=== PATIENT | female | born 1975 | race Caucasian/White ===

== ENCOUNTER 2016-12-03 11:07 | Emergency (ER) | payer BC, OTHER ==
[~2016-12-03] VITALS: Ht 157.5 cm; Wt 55.0 kg
[~2016-12-03 11:07] MED LIST: ACET300T2 PO; ALBU1AER9 INH; CLC/300 PO; DICY10CA12 PO; EFFSR75 PO; HYOS1TAB PO; LORA-741 PO; OMEP40CA41 PO
[2016-12-03 11:16] VITALS: Ht 157.5 cm; Wt 55.0 kg
[2016-12-03 11:55] LABS: BASO % 0.3 %; BASO ABS # 0.05 K/uL (0-0.2); COMPLETE YES; EOS % 1.3 %; HEMATOCRIT 46.7 % (37-47); IG% 0.3 %; LYMPH % 17.2 %; LYMPH ABS # 2.99 K/uL (1.2-3.4); MEAN CELL VOLUME 95.5 fL (80-100); MEAN CORPUSCULAR HEMOGLOBIN 33.9 pg (25-34); MEAN CORPUSCULAR HGB CONC 35.5 g/dl (32-36); MEAN PLATELET VOLUME 10.1 fL (7.4-10.4); MONO % 4.4 %; NEUT % 76.5 %; PLATELET COUNT 403 K/uL (130-400); RED BLOOD COUNT 4.89 M/uL (4.2-5.4); WHITE BLOOD COUNT 17.39 K/uL (4.8-10.8)
[2016-12-03 12:03] LABS: BUN/CREATININE RATIO 9.9 (10-20); CREATININE 0.98 mg/dl (0.60-1.20); POTASSIUM 3.6 mmol/L (3.5-5.1)
[2016-12-03 12:06] LABS: ALB/GLOB RATIO 1.1 (0.9-2)
[2016-12-03] MEDS ORDERED: ONDANSETRON INJ 2 MG/ML 2 ML VIAL IV STA (12:06)
[2016-12-03] MEDS ORDERED: SODIUM CHLORIDE 0.9% 1000ML 1,000 ML IV STA (12:06)
[2016-12-03] MEDS ORDERED: BSP/10 PO (12:28)
[2016-12-03] MEDS ORDERED: ATR25 PO (12:28)
[2016-12-03] MEDS ORDERED: VNTHFA/IN INH (12:29)
[2016-12-03] MEDS ORDERED: HYDROmorphone INJ 1 MG/ML SYR IV STA (12:38)
--- NOTE | 2016-12-03 13:13 | DIAGNOSTIC IMAGING REPORT ---
ABDOMEN AND PELVIS CT WITHOUT CONTRAST CT DOSE: 273.44 mGy.cm HISTORY: upper abd pain eval for colitis TECHNIQUE: Multiaxial CT images of the abdomen and pelvis were performed without contrast. COMPARISON STUDY: KUB 11/07/2015. Abdomen and pelvis CT 05/15/2009. FINDINGS: The lung bases are clear. Tiny hiatus hernia. Cholecystectomy. The unenhanced liver, spleen, adrenal glands, kidneys, and pancreas are unremarkable. No peripancreatic inflammatory change. No retroperitoneal lymphadenopathy. An intrauterine device appears to be in good position. No pelvic free fluid. Suboptimal evaluation for bowel pathology due to the lack of intravenous and oral contrast. However, no definite evidence for bowel obstruction. The appendix appears surgically absent. There may be minimal inflammatory change surrounding the mid small bowel loops. No colonic wall thickening identified. IMPRESSION: There may be minimal inflammatory change surrounding the mid small bowel loops. This could represent a low-grade enteritis. No evidence for bowel obstruction. No colonic wall thickening. Electronically signed by: Kenny Cheng M.D. 12/03/2016 1:11 PM Dictated Date/Time: 12/03/2016 1:04 PM
[2016-12-03] MEDS ORDERED: ALUMINUM/MAGNESIUM SUSP 30 ML UDC PO STA (13:42)
[2016-12-03] MEDS ORDERED: LIDOCAINE HCL 2% VISC SOLN 20 ML UDC PO STA (13:42)
[2016-12-03] MEDS ORDERED: FAMOTIDINE 20MG/102 ML D5W IV STA (14:15)
[2016-12-03 15:33] VITALS: BP 121/81; PULSE 93; O2SAT 99
--- NOTE | 2016-12-03 17:11 | EMERGENCY ROOM VISIT NOTE ---
History Report prepared by Taylor: Francia Lemos Under the Supervision of: Dr. Ibrahima Huffman M.D. First contact with patient: 12:04 Chief Complaint: ABDOMINAL PAIN Stated Complaint: VOMITING,DIARRHEA,ABD PAIN Nursing Triage Summary: triage note: pt reports generalized abd pain, nausea, vomitting since this am. pt reports "i feel like i am going to pass out, help me please." unable to obtain oral temp in triage. pt moving around in wheelchair in triage and states "i can't have morphine i can only have dilaudid." History of Present Illness The patient is a 41 year old female who presents to the Emergency Room with complaints of persistent severe abdominal cramping starting this morning. The pain is located in her upper mid abdomen. She has had this pain intermittently for the past 5 years. She follows with gastroenterology who told her to go on a bland diet. She has not had an endoscopy lately. Her last colonoscopy was several years ago. She reports a "zapping" sensation in her skin, chills, diaphoresis, vomiting, and diarrhea. She has diarrhea couple times a week regularly. It has not gotten worse recently. She denies any blood in her diarrhea, fever, or urinary symptoms. She denies any travel outside the country or recent antibiotics. She denies any chance of as she has an IUD in place. She has had a cholecystectomy and appendectomy. She states the pain is similar to her prior episodes of pain and only Dilaudid helps her. Source of History: patient Onset: this morning Position: abdomen (mid upper) Symptom Intensity: severe Quality: cramping Timing: other (persistent) Associated Symptoms: + chills, + diaphoresis, + diarrhea, + vomiting, No fevers, No hematochezia, No urinary symptoms Note: Pt reports zapping sensation in her skin. Review of Systems See HPI for pertinent positives & negatives. A total of 10 systems reviewed and were otherwise negative. Past Medical & Surgical Medical Problems: (1) Asthma (2) Hiatal hernia Surgical Problems: (1) History of appendectomy (2) History of cholecystectomy Family History Cancer Diabetes mellitus Heart disease Hypertension Social History Smoking Status: Current Every Day Smoker Alcohol Use: occasionally Marital Status: Occupation Status: unemployed Current/Historical Medications Scheduled Albuterol Hfa (Ventolin Hfa), 2-4 PUFFS INH Q6H Buspirone HCl (Buspirone HCl), 10 MG PO QID Dicyclomine Hcl (Dicyclomine Hcl), 10 MG PO QID Hydroxyzine HCl (Hydroxyzine HCl), 25 MG PO BID Hyoscyamine Sulfate (Levsin), 0.125 MG PO TID Omeprazole (Prilosec), 40 MG PO DAILY Venlafaxine Hcl (Effexor Extended Rel), 75 MG PO TID Allergies Coded Allergies: Amoxicillin (Verified Allergy, Severe, HIVES, 11/07/15) Cephalexin (Unverified Allergy, Severe, FULL BODY FATIGUE, 11/07/15) Iodinated Diagnostic Agents (Unverified Allergy, Severe, FEELING BURNING INSIDE AND OUT, 11/07/15) Iodine (Unverified Allergy, Severe, FEELING BURNING INSIDE AND OUT, ) FROM CT DYE Clarithromycin (Verified Allergy, Mild, 11/07/15) Penicillins (Verified Allergy, Mild, HIVES, 11/07/15) Erythromycin (Verified Allergy, Unknown, abd pain, 11/07/15) Macrolides (Verified Adverse Reaction, Mild, ERYTHROMYCIN=NASUEA, STOMACH ACHE, 11/07/15) Physical Exam Vital Signs Date Time Temp Pulse Resp B/P Pulse Ox O2 Delivery O2 Flow Rate FiO2 12/03/16 15:33 93 18 121/81 99 12/03/16 14:32 76 20 124/77 98 Room Air 12/03/16 13:10 80 26 139/92 98 Room Air 12/03/16 11:32 80 12/03/16 11:16 84 24 138/96 100 Room Air Physical Exam Constitutional: Vital signs reviewed. Eyes: Pupils are equal round reactive to light. Conjunctiva are noninjected. ENT: Pharynx is clear without erythema or exudate. Mucous membranes are moist. Neck supple without meningeal signs. Respiratory: Clear to auscultation bilaterally. Breath sounds are equal bilaterally. Cardiovascular: Regular rate and rhythm. No rubs or gallops. GI: Soft, nondistended. Epigastric tenderness. No involuntary guarding. Bowel sounds are present. Musculoskeletal: No peripheral edema. Integumentary: No cyanosis. Neurological: The patient is awake and alert. No focal deficits. Psychiatric: Very anxious. Medical Decision & Procedures ER Provider Diagnostic Interpretation: Radiology results as stated below per my review and the radiologist's interpretation: ABDOMEN AND PELVIS CT WITHOUT CONTRAST CT DOSE: 273.44 mGy.cm HISTORY: upper abd pain eval for colitis TECHNIQUE: Multiaxial CT images of the abdomen and pelvis were performed without contrast. COMPARISON STUDY: KUB 11/07/2015. Abdomen and pelvis CT 05/15/2009. FINDINGS: The lung bases are clear. Tiny hiatus hernia. Cholecystectomy. The unenhanced liver, spleen, adrenal glands, kidneys, and pancreas are unremarkable. No peripancreatic inflammatory change. No retroperitoneal lymphadenopathy. An intrauterine device appears to be in good position. No pelvic free fluid. Suboptimal evaluation for bowel pathology due to the lack of intravenous and oral contrast. However, no definite evidence for bowel obstruction. The appendix appears surgically absent. There may be minimal inflammatory change surrounding the mid small bowel loops. No colonic wall thickening identified. IMPRESSION: There may be minimal inflammatory change surrounding the mid small bowel loops. This could represent a low-grade enteritis. No evidence for bowel obstruction. No colonic wall thickening. Electronically signed by: Kenny Cheng M.D. 12/03/2016 1:11 PM Dictated Date/Time: 12/03/2016 1:04 PM Laboratory Results 12/03/16 11:31 Red Blood Count 4.89, Mean Corpuscular Volume 95.5, Mean Corpuscular Hemoglobin 33.9, Mean Corpuscular Hemoglobin Concent 35.5, Mean Platelet Volume 10.1, Neutrophils (%) (Auto) 76.5, Lymphocytes (%) (Auto) 17.2, Monocytes (%) (Auto) 4.4, Eosinophils (%) (Auto) 1.3, Basophils (%) (Auto) 0.3, Neutrophils # (Auto) 13.32, Lymphocytes # (Auto) 2.99, Monocytes # (Auto) 0.76, Eosinophils # (Auto) 0.22, Basophils # (Auto) 0.05 12/03/16 11:31 Test 12/03/16 11:31 White Blood Count 17.39 K/uL (4.8-10.8) Red Blood Count 4.89 M/uL (4.2-5.4) Hemoglobin 16.6 g/dL (12.0-16.0) Hematocrit 46.7 % (37-47) Mean Corpuscular Volume 95.5 fL (80-100) Mean Corpuscular Hemoglobin 33.9 pg (25-34) Mean Corpuscular Hemoglobin Concent 35.5 g/dl (32-36) Platelet Count 403 K/uL (130-400) Mean Platelet Volume 10.1 fL (7.4-10.4) Neutrophils (%) (Auto) 76.5 % Lymphocytes (%) (Auto) 17.2 % Monocytes (%) (Auto) 4.4 % Eosinophils (%) (Auto) 1.3 % Basophils (%) (Auto) 0.3 % Neutrophils # (Auto) 13.32 K/uL (1.4-6.5) Lymphocytes # (Auto) 2.99 K/uL (1.2-3.4) Monocytes # (Auto) 0.76 K/uL (0.11-0.59) Eosinophils # (Auto) 0.22 K/uL (0-0.5) Basophils # (Auto) 0.05 K/uL (0-0.2) RDW Standard Deviation 45.4 fL (36.4-46.3) RDW Coefficient of Variation 13.0 % (11.5-14.5) Immature Granulocyte % (Auto) 0.3 % Immature Granulocyte # (Auto) 0.05 K/uL (0.00-0.02) Anion Gap 10.0 mmol/L (3-11) Est Creatinine Clear Calc Drug Dose 61.0 ml/min Estimated GFR () 84.2 Estimated GFR (Non- 72.7 BUN/Creatinine Ratio 9.9 (10-20) Calcium Level 10.0 mg/dl (8.5-10.1) Total Bilirubin 0.3 mg/dl (0.2-1) Aspartate Amino Transf (AST/SGOT) 18 U/L (15-37) Alanine Aminotransferase (ALT/SGPT) 33 U/L (12-78) Alkaline Phosphatase 110 U/L (45-117) Total Protein 8.2 gm/dl (6.4-8.2) Albumin 4.3 gm/dl (3.4-5.0) Globulin 3.9 gm/dl (2.5-4.0) Albumin/Globulin Ratio 1.1 (0.9-2) Lipase 237 U/L (73-393) Laboratory results as reviewed by me. Medications Administered Medications (Trade) Dose Ordered Sig/Hiram Route Start Time Stop Time Status Last Admin Dose Admin Sodium Chloride (Nss 1000ml) 1,000 ml @ 999 mls/hr Q1H1M STAT IV 12/03/16 12:06 12/03/16 13:06 DC 12/03/16 12:23 999 MLS/HR Ondansetron HCl (Zofran Inj) 4 mg NOW STAT IV 12/03/16 12:06 12/03/16 12:07 DC 12/03/16 12:23 4 MG Hydromorphone HCl (Dilaudid Inj) 1 mg NOW STAT IV 12/03/16 12:38 12/03/16 12:41 DC 12/03/16 12:44 1 MG Lidocaine HCl (Viscous Lidocaine 2% Soln) 10 ml NOW STAT PO 12/03/16 13:42 12/03/16 13:43 DC 12/03/16 13:49 10 ML Al Hydroxide/Mg Hydroxide (Maalox Susp) 30 ml NOW STAT PO 12/03/16 13:42 12/03/16 13:43 DC 12/03/16 13:49 30 ML Famotidine (Pepcid 20mg/100 ml) 20 mg ONE STAT IV 12/03/16 14:15 12/03/16 14:17 DC 12/03/16 14:29 20 MG ED Course 1206: Zofran Inj 4 mg IV, NSS 1000 ml @ 999 mls/hr IV. 1218: I attempted to evaluate the patient at this time, but I was not able to because she was in the shower. 1227: The patient was evaluated in room C5. A complete history and physical exam was performed. 1238: Dilaudid Inj 1 mg IV. 1335: I reevaluated the patient. She was quiet until I walked into the room at which time she began to moan and cry saying that the pain is coming back. I reviewed the test results with her and her . When I left, I listened outside the door and she was quiet again. 1342: Maalox Susp 30 ml PO, Lidocaine HCl 10 ml PO. 1415: Famotidine 20 mg IV. 1500: I reevaluated the patient. She is resting comfortably. I discussed tonight 's findings with her. I recommended outpatient follow up with GI doctor. She verbalized agreement of the treatment plan. She was discharged home. Medical Decision This is a 41-year-old female presents with abdominal pain, vomiting and diarrhea. Differential diagnosis includes gastroenteritis, colitis, dehydration , electrolyte abnormality, IBS, bowel perforation. I did perform a limited focused review of portions of the patient's old chart on the electronic medical record. The patient was seen in 2013 for abdominal pain, vomiting, and diarrhea and noted to the doctor that she had similar symptoms ongoing for years and is followed by gastroenterology. She was treated with morphine and Dilaudid and discharged home. On the [facility] system I found that she had a colonoscopy in 2013 which was unremarkable. EGD in 2014 showed Yañez's esophagus. She was seen by gastroenterology in 2016 and diagnoses with uncontrolled GERD, IBS, and bile acid diarrhea with possible psychiatric components to her symptoms. I did evaluate the patient as noted above. The patient is presenting very dramatically. Initially I attempted to see the patient but the nurses told me that she wanted to take a shower first. I did eventually see the patient and she was moaning throughout the examination repeatedly asking for pain medicine. IV access was established. I did treat her with IV Dilaudid and Zofran per her request. She was also given normal saline IV. I did order and review the patient's blood work as noted in the electronic medical record. Her white blood cell count was elevated. I did reassess the patient. She felt better but stated the pain was coming back. After further discussion, I did order a CT of the abdomen and pelvis. I did review the images myself as well as the radiology report as described above. This demonstrated signs of enteritis but no other acute abnormality. I did treat patient with IV Pepcid as well as a GI cocktail and she was noted to have severe GERD and Yañez's esophagus by her doctor. I did reassess the patient. She is sleeping comfortably and I did talk to her stated that she felt well enough for discharge. He was advised to have her follow closely with her doctor and public address technician for further evaluation. They were given return instructions. The patient was discharged in good condition. [place] Drug Monitoring Program Search Results: patient reviewed within database Drug Monitoring Findings: No matching patients Impression Primary Impression: Upper abdominal pain Additional Impressions: Vomiting Diarrhea Scribe Attestation The scribe's documentation has been prepared under my direct and personally reviewed by me in its entirety. I confirm that the note above accurately reflects all work, treatment, procedures, and medical decision making performed by me. Departure Information Dispostion Home / Self-Care Referrals Alvin Merlos M.D. (PCP) Forms Call Back Authorization, HOME CARE DOCUMENTATION FORM, IMPORTANT VISIT INFORMATION Patient Instructions ED Abd Pain Unkn Cause Fem, ED Vomiting Diarrhea Nonspecific Ad, My [facility] Additional Instructions You have been examined and treated today on an emergency basis only. This is not a substitute for, or an effort to provide, complete comprehensive medical care. It is impossible to recognize and treat all injuries or illnesses in a single emergency department visit. It is therefore important that you follow up closely with your physician. Call as soon as possible for an appointment. Return for worsening symptoms or if you develop fever or any other concerning symptoms. Problem Qualifiers Additional Impressions: Vomiting Vomiting type: unspecified Vomiting Intractability: non-intractable Nausea presence: with nausea Qualified Codes: R11.2 - Nausea with vomiting, unspecified Diarrhea Diarrhea type: unspecified type Qualified Codes: R19.7 - Diarrhea, unspecified
== END 2016-12-03 15:36 | disposition home or self-care (01) ==
LOC: C.EDB 11:08 → C.EDC 15:36
DX: R10.10 Upper abdominal pain, unspecified (principal); R11.2 Nausea with vomiting, unspecified; R19.7 Diarrhea, unspecified; R61 Generalized hyperhidrosis; J45.909 Unspecified asthma, uncomplicated; Z79.899 Other long term (current) drug therapy; Z97.5 Presence of (intrauterine) contraceptive device; Z82.49 Family history of ischemic heart disease and other diseases of the circulatory system; Z83.3 Family history of diabetes mellitus; F17.200 Nicotine dependence, unspecified, uncomplicated

== ENCOUNTER 2017-01-04 15:55 | Emergency (ER) | payer BC ==
[~2017-01-04] VITALS: Ht 157.5 cm; Wt 62.1 kg
[~2017-01-04 15:55] MED LIST changes: -ACET300T2 PO; -ALBU1AER9 INH; +ATR25 PO; +BSP/10 PO; -CLC/300 PO; -LORA-741 PO; +VNTHFA/IN INH
[2017-01-04 16:08] VITALS: TEMP 36.6; Ht 157.5 cm; Wt 62.1 kg
[2017-01-04] MEDS ORDERED: PROCHLORPERAZINE 5 MG/ML 2 ML VIAL IV STA (16:21)
[2017-01-04] MEDS ORDERED: SODIUM CHLORIDE 0.9% 1000ML 1,000 ML IV STA (16:21)
[2017-01-04 16:28] LABS: BASO % 0.3 %; BASO ABS # 0.04 K/uL (0-0.2); COMPLETE YES; EOS % 0.7 %; HEMATOCRIT 44.2 % (37-47); IG% 0.3 %; LYMPH % 20.2 %; MEAN CELL VOLUME 94.8 fL (80-100); MEAN CORPUSCULAR HEMOGLOBIN 33.5 pg (25-34); MEAN CORPUSCULAR HGB CONC 35.3 g/dl (32-36); MEAN PLATELET VOLUME 9.8 fL (7.4-10.4); MONO % 5.1 %; NEUT % 73.4 %; PLATELET COUNT 361 K/uL (130-400); RED BLOOD COUNT 4.66 M/uL (4.2-5.4); WHITE BLOOD COUNT 15.35 K/uL (4.8-10.8)
[2017-01-04] MEDS ORDERED: HYDROmorphone INJ 2 MG/ML SYR/VIAL IV PRN (16:30)
[2017-01-04 16:39] LABS: INR 1.1 (0.9-1.1); PROTHROMBIN TIME (PATIENT) 11.5 SECONDS (9.0-12.0)
--- NOTE | 2017-01-04 16:43 | DIAGNOSTIC IMAGING REPORT ---
CHEST ONE VIEW PORTABLE CLINICAL HISTORY: ABDOMINAL PAIN/GI nausea COMPARISON STUDY: 03/08/2014 FINDINGS: The bones soft tissues and hemidiaphragms are normal. The cardiomediastinal silhouette is normal. The lungs are clear. The pulmonary vasculature is normal. IMPRESSION: Negative chest. Electronically signed by: Amarjit Todd M.D. 01/04/2017 4:41 PM Dictated Date/Time: 01/04/2017 4:41 PM
[2017-01-04 16:45] LABS: BUN/CREATININE RATIO 7.7 (10-20); CALCIUM 9.1 mg/dl (8.5-10.1); CREATININE 0.92 mg/dl (0.60-1.20); POTASSIUM 3.6 mmol/L (3.5-5.1)
--- NOTE | 2017-01-04 17:38 | EMERGENCY ROOM VISIT NOTE ---
History Report prepared by Taylor: Albert Hodge Under the Supervision of: Dr. Hal Christopher D.O. First contact with patient: 16:09 Chief Complaint: ABDOMINAL PAIN Stated Complaint: AB PAIN Nursing Triage Summary: [place] [facility] [place]. Patient presents with 10/10 abdominal pain nausea and vomiting. History of Present Illness The patient is a 41 year old female who presents to the Emergency Room via ALS from [facility]-post colonoscopy and endoscopy with complaints of persistent abdominal pain that started prior to arrival today. She states that her abdominal pain is severe and a 10 out of 10 in severity. The patient describes the abdominal pain as a cramping. She states that she cannot stop vomiting and she is very nauseous and sweaty. The patient says that she started the prep for her colonoscopy around 1500 yesterday afternoon. She says she currently feels like she may pass out and is tingly everywhere. The patient was given IV Zofran at [facility] but she states that it has not worked. The patient had a colonoscopy done because she has had similar symptoms in the past. The colonoscopy looked fine today, per the patient's significant other. She has a history of a cholecystectomy and appendectomy. Source of History: patient, spouse/significant other Onset: Prior to arrival today Position: abdomen Symptom Intensity: 10/10 and severe Quality: cramping Timing: other (persistent) Associated Symptoms: + diaphoresis, + nausea, + vomiting Note: Associated symptoms: Feels tingly everywhere and feels like she may pass out. Review of Systems See HPI for pertinent positives & negatives. A total of 10 systems reviewed and were otherwise negative. Past Medical & Surgical Medical Problems: (1) Asthma (2) Hiatal hernia Surgical Problems: (1) History of appendectomy (2) History of cholecystectomy Family History Cancer Diabetes mellitus Heart disease Hypertension Social History Smoking Status: Current Every Day Smoker Alcohol Use: occasionally Marital Status: Occupation Status: unemployed Current/Historical Medications Scheduled Buspirone HCl (Buspirone HCl), 10 MG PO QID Dicyclomine Hcl (Dicyclomine Hcl), 10 MG PO QID Hydroxyzine HCl (Hydroxyzine HCl), 25 MG PO BID Hyoscyamine Sulfate (Levsin), 0.125 MG PO TID Omeprazole (Prilosec), 40 MG PO DAILY Venlafaxine Hcl (Effexor Extended Rel), 75 MG PO TID Allergies Coded Allergies: Amoxicillin (Verified Allergy, Severe, HIVES, 11/07/15) Cephalexin (Unverified Allergy, Severe, FULL BODY FATIGUE, 11/07/15) Iodinated Diagnostic Agents (Unverified Allergy, Severe, FEELING BURNING INSIDE AND OUT, 11/07/15) Iodine (Unverified Allergy, Severe, FEELING BURNING INSIDE AND OUT, ) FROM CT DYE Clarithromycin (Verified Allergy, Mild, 11/07/15) Penicillins (Verified Allergy, Mild, HIVES, 11/07/15) Erythromycin (Verified Allergy, Unknown, abd pain, 11/07/15) Macrolides (Verified Adverse Reaction, Mild, ERYTHROMYCIN=NASUEA, STOMACH ACHE, 11/07/15) Physical Exam Vital Signs Date Time Temp Pulse Resp B/P Pulse Ox O2 Delivery O2 Flow Rate FiO2 01/04/17 16:08 36.6 74 16 141/93 100 Room Air Physical Exam CONSTITUTIONAL/VITAL SIGNS: Reviewed / noted above. GENERAL: Non-toxic in appearance. INTEGUMENTARY: Warm, dry, and [place]. HEAD: Normocephalic. EYES: without scleral icterus or trauma. ENT/OROPHARYNX: clear and moist. LYMPHADENOPATHY/NECK: Is supple without lymphadenopathy or meningismus. RESPIRATORY: Lungs clear and equal. CARDIOVASCULAR: Regular rate and rhythm. GI/ABDOMEN: Soft. Mild diffuse abdominal tenderness. No organomegaly or pulsatile mass. No rebound or guarding. Normal bowel sounds. EXTREMITIES: Warm and well perfused. BACK: No CVA tenderness. NEUROLOGICAL: Intact without focal deficits. PSYCHIATRIC: normal affect. MUSCULOSKELETAL: Normally developed with good muscle tone. Medical Decision & Procedures ER Provider Diagnostic Interpretation: X ray results and stated below per my interpretation and radiology interpretation. CHEST ONE VIEW PORTABLE CLINICAL HISTORY: ABDOMINAL PAIN/GI nausea COMPARISON STUDY: 03/08/2014 FINDINGS: The bones soft tissues and hemidiaphragms are normal. The cardiomediastinal silhouette is normal. The lungs are clear. The pulmonary vasculature is normal. IMPRESSION: Negative chest. Electronically signed by: Amarjit Todd M.D. 01/04/2017 4:41 PM Dictated Date/Time: 01/04/2017 4:41 P Laboratory Results 01/04/17 16:15 Red Blood Count 4.66, Mean Corpuscular Volume 94.8, Mean Corpuscular Hemoglobin 33.5, Mean Corpuscular Hemoglobin Concent 35.3, Mean Platelet Volume 9.8, Neutrophils (%) (Auto) 73.4, Lymphocytes (%) (Auto) 20.2, Monocytes (%) (Auto) 5.1, Eosinophils (%) (Auto) 0.7, Basophils (%) (Auto) 0.3, Neutrophils # (Auto) 11.27, Lymphocytes # (Auto) 3.10, Monocytes # (Auto) 0.79, Eosinophils # (Auto) 0.11, Basophils # (Auto) 0.04 01/04/17 16:15 Test 01/04/17 16:15 White Blood Count 15.35 K/uL (4.8-10.8) Red Blood Count 4.66 M/uL (4.2-5.4) Hemoglobin 15.6 g/dL (12.0-16.0) Hematocrit 44.2 % (37-47) Mean Corpuscular Volume 94.8 fL (80-100) Mean Corpuscular Hemoglobin 33.5 pg (25-34) Mean Corpuscular Hemoglobin Concent 35.3 g/dl (32-36) Platelet Count 361 K/uL (130-400) Mean Platelet Volume 9.8 fL (7.4-10.4) Neutrophils (%) (Auto) 73.4 % Lymphocytes (%) (Auto) 20.2 % Monocytes (%) (Auto) 5.1 % Eosinophils (%) (Auto) 0.7 % Basophils (%) (Auto) 0.3 % Neutrophils # (Auto) 11.27 K/uL (1.4-6.5) Lymphocytes # (Auto) 3.10 K/uL (1.2-3.4) Monocytes # (Auto) 0.79 K/uL (0.11-0.59) Eosinophils # (Auto) 0.11 K/uL (0-0.5) Basophils # (Auto) 0.04 K/uL (0-0.2) RDW Standard Deviation 45.6 fL (36.4-46.3) RDW Coefficient of Variation 13.1 % (11.5-14.5) Immature Granulocyte % (Auto) 0.3 % Immature Granulocyte # (Auto) 0.04 K/uL (0.00-0.02) Prothrombin Time 11.5 SECONDS (9.0-12.0) Prothromb Time International Ratio 1.1 (0.9-1.1) Activated Partial Thromboplast Time 26.5 SECONDS (21.0-31.0) Partial Thromboplastin Ratio 1.0 Anion Gap 9.0 mmol/L (3-11) Est Creatinine Clear Calc Drug Dose 71.2 ml/min Estimated GFR () 90.9 Estimated GFR (Non- 78.4 BUN/Creatinine Ratio 7.7 (10-20) Calcium Level 9.1 mg/dl (8.5-10.1) Total Bilirubin 0.5 mg/dl (0.2-1) Direct Bilirubin 0.2 mg/dl (0-0.2) Aspartate Amino Transf (AST/SGOT) 16 U/L (15-37) Alanine Aminotransferase (ALT/SGPT) 22 U/L (12-78) Alkaline Phosphatase 88 U/L (45-117) Total Protein 7.4 gm/dl (6.4-8.2) Albumin 4.0 gm/dl (3.4-5.0) Lipase 91 U/L (73-393) Laboratory results as stated above per my review. Medications Administered Medications (Trade) Dose Ordered Sig/Hiram Route Start Time Stop Time Status Last Admin Dose Admin Sodium Chloride (Nss 1000ml) 1,000 ml @ 999 mls/hr Q1H1M STAT IV 01/04/17 16:21 01/04/17 17:21 DC 01/04/17 16:21 999 MLS/HR Hydromorphone HCl (Dilaudid Inj) 2 mg Q1H PRN IV 01/04/17 16:30 01/18/17 16:29 01/04/17 16:43 2 MG Prochlorperazine Edisylate (Compazine Inj) 10 mg NOW STAT IV 01/04/17 16:21 01/04/17 16:23 DC 01/04/17 16:42 10 MG ED Course 1619: Previous medical records were reviewed. The patient was evaluated in room C5. A complete history and physical examination was performed. 1621: Ordered Compazine Inj 10 mg IV, NSS 1000 ml @ 999 mls/hr IV. 1630: Ordered Dilaudid Inj 2 mg IV PRN. 1738: On reevaluation, the patient feels better. I discussed the results and findings with the patient. She verbalized agreement of the treatment plan. She will be discharged home. Medical Decision Differential considered: pancreatitis, hepatitis, AAA, UTI, pyelonephritis, kidney stones, diverticulitis, shingles, bowel obstruction mesenteric ischemia, intussusception,hernia, ovarian torsion, ruptured ovarian cyst,ectopic , . Medication Reconciliation: I attest that I have personally reviewed the patient' s current medication list. Blood pressure Screening: Patient was found to have normal blood pressure on screening and does not require follow-up. This is a 41-year-old female who presents to the ED with a chief complaint of abdominal pain following colonoscopy prep. The patient states that she has had colonoscopy prep today. She had a normal colonoscopy, according to the patient. She has complaints of abdominal discomfort and cramping as well as nausea and vomiting. The patient reportedly has had similar symptoms in the past. For this reason she had a colonoscopy today. Her exam reveals mild diffuse abdominal discomfort. Vital signs are stable. Chest x-ray did not show acute disease or free air. White blood count was 15. This could be related to the retching and discomfort. Complete metabolic panel was unremarkable and lipase was normal. The patient was told the results. She was given IV Dilaudid, IV Compazine and IV fluids. The patient was told the results. Her symptoms did improve with this. She is felt to be stable for discharge. Impression Primary Impression: Nausea, vomiting, and diarrhea Additional Impression: Abdominal pain Scribe Attestation The scribe's documentation has been prepared under my direction and personally reviewed by me in its entirety. I confirm that the note above accurately reflects all work, treatment, procedures, and medical decision making performed by me. Departure Information Dispostion Home / Self-Care Referrals Alvin Merlos M.D. (PCP) Patient Instructions [facility] Additional Instructions Follow-up with your doctor for further care and evaluation in 1-2 days. Return to the emergency department for worsening or new symptoms or any concerns. You have been examined and treated today on an emergency basis only. This is not a substitute for, or an effort to provide, complete comprehensive medical care. It is impossible to recognize and treat all injuries or illnesses in a single emergency department visit. It is therefore important that you follow up closely with your doctor. Call as soon as possible for an appointment. Problem Qualifiers
[2017-01-04 18:11] VITALS: BP 128/41; PULSE 88; O2SAT 97
== END 2017-01-04 18:12 | disposition home or self-care (01) ==
LOC: EDBD 15:55 → C.EDC 16:01
DX: R11.2 Nausea with vomiting, unspecified (principal); R19.7 Diarrhea, unspecified; R10.9 Unspecified abdominal pain; J45.909 Unspecified asthma, uncomplicated; K44.9 Diaphragmatic hernia without obstruction or gangrene; Z83.3 Family history of diabetes mellitus; Z82.49 Family history of ischemic heart disease and other diseases of the circulatory system; F17.200 Nicotine dependence, unspecified, uncomplicated